=== PATIENT | female | born 1995 | race Caucasian/White ===

== ENCOUNTER → 2016-10-04 | Outpatient (CLI) | payer OTHER ==
[~2016-10-04] MED LIST: BCPILLS PO
--- NOTE | 2016-10-04 15:54 | DIAGNOSTIC IMAGING REPORT ---
LEFT KNEE MRI HISTORY: Left knee pain COMPARISON STUDY: None. TECHNIQUE: Multiplanar multisequence MRI of the left knee was performed according to standard department protocol without the use of contrast. FINDINGS: Menisci: The medial meniscus is intact. Small free edge tear at the body of the lateral meniscus. There is a hypointense focus at the intercondylar notch best seen on the coronal sequences image 16 in the axial sequences image 13. This measures 7 mm. This is indeterminate but raises the possibility of a bucket handle tear of the lateral meniscus. Ligaments: There is a full-thickness tear through the ACL. Small partial tear at the MCL. The PCL and LCL are intact. Extensor mechanism: The quadriceps tendon and patellar ligament are intact. Articular cartilage and bone: There are bone contusions at the posterior aspect of the medial and lateral tibial plateaus. Small focus of marrow edema at the lateral femoral condyle may also be due to a bone contusion. Best seen on the sagittal sequences image 6 there is suggestion of a microfracture at the posterior lip of the medial tibial plateau. No significant displacement/depression. Joint effusion: Small. Soft tissues: Soft tissue edema surrounding the knee. IMPRESSION: 1. Full-thickness ACL tear. 2. Small partial tear of the MCL. 3. Small free edge tear at the body of the lateral meniscus. There is also a 7 mm hypointense focus within the intercondylar notch. This is indeterminate but raises the possibility of a bucket handle tear of the lateral meniscus. 4. Small joint effusion. 5. Suggestion of a small microfracture at the posterior lip of the medial tibial plateau. No significant displacement/depression. Electronically signed by: Nolberto Michele M.D. 10/04/2016 3:52 PM Dictated Date/Time: 10/04/2016 12:01 PM
== END | disposition home or self-care (01) ==
LOC: C.MRI 10:58
PROVIDERS: ATTEND Orthopaedic Surgery Sports Medicine
DX: S89.92XA Unspecified injury of left lower leg, initial encounter (principal); X58.XXXA Exposure to other specified factors, initial encounter

== ENCOUNTER → 2016-10-22 | Day surgery (SDC) | payer OTHER ==
[2016-10-11 12:53] VITALS: Ht 152.4 cm; Wt 52.3 kg
[~2016-10-22] VITALS: Ht 152.4 cm; Wt 52.3 kg
[~2016-10-22] MED LIST changes: +ATROPINE SULFATE 0.1 MG/ML 5ML SYR IV PRN; +BUPIVACAINE/EPINEPHRINE 0.5% MPF 1:200,000 30 ML VIAL ONE; +CEFAZOLIN 1000MG/55 ML D5W IV SCH; +DEXAMETHASONE SOD INJ 4 MG/ML VIAL ONE; +EpHEDrine SULFATE INJ 50 MG/ML AMP IV PRN; +EpINEphrine INJ 1MG/ML AMP 1 MG/ML AMP ONE; +FENTANYL CITRATE INJ 50 MCG/1 ML 2 ML VIAL IV PRN; +FENTANYL CITRATE INJ 50 MCG/1 ML 2 ML VIAL ONE; +HYDROmorphone INJ 1 MG/ML SYR ONE; +LACTATED RINGER'S 1000ML 1,000 ML IV SCH; +LIDOCAINE HCL 1% 20 ML VIAL ONE; +LIDOCAINE HCL 2% 2 ML VIAL (20MG/ML) ONE; +MIDAZOLAM HCL 1 MG/ML 2ML VIAL ONE; +MoRPHine SULFATE 2 MG/ML CARP IV PRN; +MoRPHine SULFATE 4 MG/ML 1 ML CARP\\VIAL IV PRN; +ONDANSETRON INJ 2 MG/ML 2 ML VIAL IV PRN; +ONDANSETRON INJ 2 MG/ML 2 ML VIAL ONE; +OXYCODONE/ACETAMINOPHEN 5-325 TAB PO PRN; +PROMETHAZINE HCL INJ 12.5 MG in SODIUM CHLORIDE 0.9% 50ML 50 ML IV ONE; +PROMETHAZINE HCL INJ 25 MG/ML 1 ML VIAL ONE; +PROPOFOL IV EMULSION 10 MG/ML 20 ML VIAL IV ONE; +ROPIVACAINE 0.5% 5 MG/ML 30 ML VIAL ONE; +SCOPOLAMINE 1.5 MG TDSY TD ONE
--- NOTE | 2016-10-22 06:44 | History & Physical Bridge - [place] ---
H&P Re-Evaluation Bridge Note: I have examined the patient, reviewed the History & Physical and in the interval since the performance of the History & Physical I have noted the following changes of clinical significance: No changes noted
--- NOTE | 2016-10-22 10:06 | Discharge Instructions-SurgCtr ---
Discharge Instructions Visit Reason for Visit: Left Acl Tear, Mcl Sprain Discharge Discharge Diagnosis / Problem: S/P Left ACL reconstruction, partial Lateral meniscectomy Discharge Goals Goal(s): Decrease discomfort, Improve function, Increase independence Activity Recommendations Activity Limitations: per Instructions/Follow-up section May Resume Sexual Activity: when tolerated Shower/Bathe: may shower/bathe in 3 days Driving or Machine Use: Not while on Narcotics Weightbearing Status: Left non-weightbearing (for 24 hours, then WBAT with brace locked in extension) Anesthesia . Post Anesthesia Instructions: If you have had General Anesthesia or IV Sedation: * Do not drive today. * Resume driving when surgeon permits. * Do not make important decisions or sign legal documents today. * Call surgeon for: 1. Temperature elevations greater than 101 degrees F. 2. Uncontrollable pain. 3. Excessive bleeding. 4. Persistent nausea and vomiting. 5. Medication intolerance (nausea, vomiting or rash). * For nausea and vomiting use only clear liquids such as: tea, soda, bouillon until nausea subsides, then gradually increase diet as tolerated. * If you have any concerns or questions, call your surgeon's office. If physician is unavailable and it is an emergency, call 911 or go to the nearest emergency room. . Instructions / Follow-Up Instructions / Follow-Up Dr. Hernandez in 10-15 days. ATC in 1-2 days. Diet Recommendations Home Diet: resume previous diet Procedures Procedures Performed: Left Knee Arthroscopic Anterior Cruciate Ligament Reconstruction With Hamstring Autograft, Partial Lateral Menisectomy, Exam Under Anesthesia Pending Studies Studies pending at discharge: no School Instructions Return To School: time frame (1 week) Medical Emergencies . Who to Call and When: Medical Emergencies: If at any time you feel your situation is an emergency, please call 911 immediately. . Non-Emergent Contact Non-Emergency issues call your: Surgeon Call Non-Emergent contact if: temperature is above 101.5, your pain is not controlled, wound has increased drainage, wound has increased redness . . "Provider Documentation" section prepared by Pascual Hernandez.
--- NOTE | 2016-10-22 10:07 | [facility] Post Operative Brief Note ---
Immediate Operative Summary Operative Date Oct 22, 2016. Pre-Operative Diagnosis Left Anterior cruciate ligament tear, medial collateral ligament sprain Post-Operative Diagnosis same Procedure(s) Performed 1) Left Knee Arthroscopic Anterior Cruciate Ligament Reconstruction With Hamstring Autograft. 2) Partial Lateral Menisectomy. 3) Exam Under Anesthesia. Surgeon Dr Hernandez Tannery Worker Surgeon(s) Dr Ирина Baer & Boogie Mclain PA-C Estimated Blood Loss 30 ml Findings As above. Fluids (cc crystalloids) 2000 Specimens 0 Drains n/a Anesthesia LMA + Adductor nerve block Complication(s) None Disposition Recovery Room / PACU (Stable)
--- NOTE | 2016-10-22 10:08 | [facility] Operative Report ---
Operative Report Operative Date Oct 22, 2016. Pre-Operative Diagnosis Left Anterior cruciate ligament tear, medial collateral ligament sprain Post-Operative Diagnosis same + Lateral meniscus tear Procedure(s) Performed 1) Left Knee Arthroscopic Anterior Cruciate Ligament Reconstruction With Hamstring Autograft. 2) Partial Lateral Menisectomy. 3) Exam Under Anesthesia. Surgeon Dr Hernandez Check Writing Machine Operator Surgeon(s) Dr Ирина Baer & Boogie Mclain PA-C Estimated Blood Loss 30 ml Findings Examination Under Anesthesia left knee: Range of motion was 0-140. Ligamentous examination exhibited: Ingrid testing with 7 mm of anterior translation and soft endpoint, and a + pivot glide. Stable: posterior drawer, varus and valgus stress testing at zero and 30. ARTHROSCOPIC FINDINGS: 1) PATELLOFEMORAL JOINT: The articular cartilage of the patella and trochlea was normal. 2) GUTTERS: No loose bodies. 3) MEDIAL COMPARTMENT: The articular cartilage of the femur and tibia were normal. The medial meniscus was intact. 4) ACL/PCL: There was an empty lateral wall sign. There was obvious fraying of the ACL and stump torn off the femoral side. The PCL was visualized and probed to be intact. 5) LATERAL COMPARTMENT: The lateral compartment was then entered in a figure-of- four position. The femoral/tibial cartilage was normal. The lateral meniscus had a radial tear at the apex. There was oblique flap tear at the posterior horn. Fluids (cc crystalloids) 2000 Specimens 0 Drains n/a Anesthesia LMA + Adductor nerve block Complication(s) None Disposition Recovery Room / PACU (Stable) Implants 1. Femoral Fixation with ACL Tightrope RT (Arthrex). 2. Tibial Fixation with ABS Tightrope with ABS button (Arthrex). 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 I recommended that their left knee anterior cruciate ligament reconstruction be performed to allow the patient to return to cutting/ pivoting activities. The patient understands the rehabilitation process as well as the risks of surgery, which include bleeding, infection, re-operation, damage to nerves and arteries, continued knee pain, or regression of arthritis, arthrofibrosis (knee stiffness), failure of the graft, failure of the hardware, and the potential that the patient may not return to their previous level of activity, and deep vein thrombosis. The patient understands all of these instructions and explanations, all of their questions have been satisfactorily addressed and the patient has elected to proceed. Informed consent was signed. Description of Procedure The patient was taken to the Operating Room and placed in the supine position after Adductor nerve block and general anesthetic was administered. The surgeon initials and a multidisciplinary time-out were used to identify the left leg as the correct operative limb. Prior to the incision, 1 gram of intravenous Ancef was given. The left leg was then prepped and draped in a standard sterile fashion. The anterolateral, anteromedial, and superolateral portals were injected with the 50:50 mixture of 1% Lidocaine plain and 0.5% Bupivacaine with epinephrine, for a total of 4cc, in the standard fashion. An anterolateral arthroscopic portal was established with 11-blade. Next, the arthroscope was introduced into the knee. The anteromedial portal was established under direct visualization using a spinal needle followed by an 11 blade in the standard fashion. The above findings were observed during the diagnostic arthroscopy. Graft [place]: The oblique planed incision was injected with 6 cc of the above noted 50:50 mixture. With the knee bent 40-50 degrees a #10-blade was used to make sharp dissection approximately 5 cm. Blunt dissection was used to identify the Sartorious fascia. This was incised along its superior border and T distally. The Gracilis and Semitendinosus were identified and tagged. All adhesions were bluntly and sharply dissected off the tendons. The tendons were sharply dissected off the bone distally and a Krackow stitch was placed with a # 2 FiberWire. The tendons were delivered into the wound and the remaining adhesions were removed. A closed end graft harvester was used to then harvest the tendons in the standard fashion. The graft was placed on the back table for preparation. All excess muscle was removed. The ends of the tendons were whipped stitched with 3-0 Vicryl and passed through the ABS and RT Tightropes, where the ends were then secured with a FiberLoop. 0 Vicryl was used to miguel the 20mm from either end of the tight ropes and the knot docked in the standard fashion. It was quadrupled over and found to fit an 9 mm sizer, for the femoral side and a 9 mm sizer on the tibial side. The graft length was 69 mm. The graft was tensioned on the back table and 15 PSI and covered with a moist sponge until later use. After completing the diagnostic arthroscopy, the lateral meniscus tear was irreparable and debrided back to a stable margin with a hand punches and mechanical shaver. The left knee was then flexed to 90 degrees and a bump was placed underneath the posterior thigh. With the knee flexed in a 90-degree position, my attention was then focused on excising the remnants of the anterior cruciate ligament with a 5.0 mm shaver and Coolcut. Due to the bone bleeding, and obscuring our view, an Esmarch bandage was used to exsanguinate the limb and a tourniquet was inflated to 250 mmHg. A small notchplasty was performed to visualize the back wall. The Tibial drill guide was then brought into the knee and set on 60 degrees. A 9 mm Flipcutter was then introduced from the anteromedial tibia into the intra- articular position in the center of the ACL footprint even with the anterior horn of lateral meniscus and 8 mm anterior to the PCL. The tunnel was created to a depth of 35 mm. A Tigerstick was introduced through the tibial tunnel and retrieved through the anteromedial portal. The arthroscope was switch to the anteromedial portal and the Flipcutter aiming guide was placed at the 2 Oclock position with 6 mm from the over the top position, with 110 degrees. The lateral aspect of the femur was marked and a small 2 cm incision was made to place the aiming guide down to bone. Then the 9 mm Flipcutter was introduced into the knee through the lateral femoral condyle for proper femoral tunnel placement. The Flipcutter was flipped and the tunnel was reamed for a total tunnel length of 25 mm. There was 1 mm thick back wall. A wire loop was then used and shuttled in through the femoral tunnel and then out the anteromedial portal, along with the Tigerstick to pass the graft, insuring that there was no soft tissue bridge. The graft was then introduced intra-articularly through the anteromedial portal. The graft was then seated in an anatomic position along the femur. Fixation was accomplished on the femoral side with an ACL Tightrope RT. The graft was then introduced into the tibial tunnel and an ABS button was placed. Next, the graft was taken into full extension. There was no impingement. The graft entered the knee approximately 1 mm at 10 degrees of flexion. The arthroscopic instruments were then removed. The graft was then cycled and fixed to the knee in 0 degrees flexion with ABS Tightrope and button on the tibial side in the standard fashion. Ingrid and pivot shift were then tested and were negative. The knee had full range of motion. The wounds were then copiously irrigated. The portal sites were closed with 3- 0 Prolene. The Sartorius fascia was closed with 0 Vicryl in a running fashion. The deep adipose tissue had a single 2-0 Vicryl suture placed after copious irrigation. The subcutaneous tissue was closed with 3-0 Vicryl. The skin was closed with a running subcuticular using a 3-0 Prolene in a standard running fashion. The wound was dressed with Steri-Strips, Xeroform gauze, sterile gauze , ABDs, sterile Webril, and a foot to thigh Maninder bandage. An Iceman device and T-ROM hinged knee brace were applied. The patient was then transferred to the Recovery Room in stable condition. Post-op Instructions: The patient will be weight bearing as tolerated with his brace locked in extension for the next 2 weeks. The patient may remove the operative dressing on Post-Op Day #2 and apply Band-Aids to the portal wounds and cover their anterior incision with gauze as needed. The patient may shower in 72 hours and is to wear the LAZARA for 2 weeks on their operative limb. The patient is to use the pain medicine as needed and take the ASA for 3 weeks. The patient is to start PT post-operative day 2. The patient was also given a handout for home quad strengthening and seated self-assisted ROM exercises, which they may begin tomorrow. The patient is to follow up with me in 10-15 days. I attest to the content of the Intraoperative Record and any orders documented therein. Any exceptions are noted below.
--- NOTE | 2016-10-22 10:23 | [facility] Operative Report ---
Operative Report Operative Date Oct 22, 2016. Pre-Operative Diagnosis Left Anterior cruciate ligament tear, medial collateral ligament sprain Post-Operative Diagnosis same + Lateral meniscus tear Procedure(s) Performed 1) Left Knee Arthroscopic Anterior Cruciate Ligament Reconstruction With Hamstring Autograft. 2) Partial Lateral Menisectomy. 3) Exam Under Anesthesia. Surgeon Dr Hernandez Home Care Chaplain Surgeon(s) Dr Ирина Baer & Boogie Mclain PA-C Estimated Blood Loss 30 ml Findings Same Fluids (cc crystalloids) 2000 Specimens 0 Drains none Anesthesia general, block Complication(s) None Disposition Recovery Room / PACU Implants see Dr. Hernandez's note Indications sustained injury to left knee during gymnastics, MRI obtained, surgery recommended, consents signed. Description of Procedure taken to the OR, prepped and draped, I was present the entire case, please see Dr. Hernandez's op note for further detail. I attest to the content of the Intraoperative Record and any orders documented therein. Any exceptions are noted below.
[2016-10-22 11:39] VITALS: TEMP 36.5
[2016-10-22 12:35] VITALS: BP 143/85; PULSE 67; O2SAT 100
--- NOTE | 2016-10-22 13:16 | Anesthesia Progress Nt - [facility] ---
Anesthesia Post Op Note Date & Time Oct 22, 2016 at 13:16 Vital Signs Pain Intensity: 4 Vital Signs Past 12 Hours Date Time Temp Pulse Resp B/P Pulse Ox O2 Delivery O2 Flow Rate FiO2 10/22/16 12:35 67 14 143/85 100 Room Air 10/22/16 12:15 69 16 140/89 99 Room Air 10/22/16 11:39 36.5 57 14 126/77 97 Room Air 10/22/16 11:29 71 9 10/22/16 11:29 71 9 10/22/16 11:29 74 9 96 10/22/16 11:29 74 9 96 10/22/16 11:28 127/75 10/22/16 11:28 127/75 10/22/16 11:24 67 10 99 10/22/16 11:24 68 10 10/22/16 11:24 67 10 99 10/22/16 11:24 68 10 10/22/16 11:23 133/68 10/22/16 11:23 133/68 10/22/16 11:19 64 9 99 10/22/16 11:19 64 9 10/22/16 11:19 64 9 99 10/22/16 11:19 64 9 10/22/16 11:18 125/70 10/22/16 11:18 125/70 10/22/16 11:14 94 17 10/22/16 11:14 94 17 10/22/16 11:14 93 17 95 10/22/16 11:14 93 17 95 10/22/16 11:13 130/78 10/22/16 11:13 130/78 10/22/16 11:09 93 12 10/22/16 11:09 93 12 10/22/16 11:09 92 12 100 10/22/16 11:09 92 12 100 10/22/16 11:08 126/73 10/22/16 11:08 126/73 10/22/16 11:05 36.5 70 16 135/73 99 Mask 8 10/22/16 11:04 76 16 10/22/16 11:04 76 16 10/22/16 11:04 71 16 99 10/22/16 11:04 71 16 99 10/22/16 11:03 135/73 10/22/16 11:03 135/73 10/22/16 10:59 83 11 99 217 10:59 82 11 2/ 10:59 83 11 99 10/22/17 10:59 82 11 10/22/17 10:58 124/72 26/17 10:58 124/72 2//17 10:54 67 7 2/17 10:54 67 7 99 10/22/17 10:54 67 7 99 10/22/16 10:54 67 7 10/22/ 10:53 127/72 2/17 10:53 127/72 10/22/17 10:49 84 7 10/22/ 10:49 85 7 98 10/22/ 10:49 85 7 98 10/22/ 10:49 84 7 10/22/16 10:48 136/68 10/22/ 10:48 136/68 10/22/17 10:44 104 13 99 10/22/17 10:44 103 13 10/22/16 10:44 103 13 10/22/16 10:44 104 13 99 10/22/ 10:43 133/75 2/ 10:43 133/75 10/22/17 10:39 91 9 10/22/ 10:39 88 9 99 10/22/ 10:39 88 9 99 10/22/ 10:39 91 9 10/22/16 10:38 125/71 2/17 10:38 125/71 //17 10:34 100 13 2/17 10:34 100 13 100 10/22/17 10:34 100 13 100 10/22/17 10:34 100 13 10/22/17 10:33 132/67 2/17 10:32 36.8 90 16 136/71 100 Mask 10 10/22/16 10:31 94 13 10/22/17 10:31 93 13 100 10/22/17 10:28 137/80 10/22/17 10:26 101 15 2/17 10:26 100 15 134/71 100 2/6/17 07:01 66 10/22/16 07:01 65 29 100 10/22/17 07:00 14 10/22/16 07:00 66 10/22/16 07:00 68 16 100 217 06:58 122/73 2/6/17 06:55 89 147/88 97 Mask 4 10/22/16 06:55 80 10/22/16 06:55 79 18 100 10/22/16 06:53 147/88 10/22/16 06:50 79 0 10/22/16 06:45 81 20 10/22/16 06:45 20 10/22/16 06:40 74 22 10/22/16 06:40 22 10/22/16 06:35 77 16 99 10/22/16 06:35 79 16 10/22/16 06:33 36.9 81 16 130/71 100 Room Air Notes Mental Status: alert / awake / arousable, participated in evaluation Pt Amnestic to Procedure: Yes Nausea / Vomiting: adequately controlled Pain: adequately controlled Airway Patency, RR, SpO2: stable & adequate BP & HR: stable & adequate Hydration State: stable & adequate Anesthetic Complications: no major complications apparent
== END | disposition home or self-care (01) ==
LOC: X.SURG 06:21
PROVIDERS: ATTEND Orthopaedic Surgery Sports Medicine
DX: S83.512A Sprain of anterior cruciate ligament of left knee, initial encounter (principal); S83.282A Other tear of lateral meniscus, current injury, left knee, initial encounter; W18.39XA Other fall on same level, initial encounter; Y93.43 Activity, gymnastics; Y92.39 Other specified sports and athletic area as the place of occurrence of the external cause; Y99.8 Other external cause status

== ENCOUNTER → 2017-07-24 | Outpatient (CLI) | payer OTHER ==
--- NOTE | 2017-07-23 17:09 | DIAGNOSTIC IMAGING REPORT ---
RIGHT HAND 3 VIEWS HISTORY: RIGHT HAND PAIN COMPARISON: None. FINDINGS: Oblique fractures within the shafts of the third and fourth metacarpals which demonstrate up to 5 mm of posterior displacement. No dislocation. Soft tissue swelling within the hand. No radiopaque foreign bodies. IMPRESSION: Oblique displaced fractures within the shafts of the third and fourth metacarpals. Electronically signed by: Nolberto Michele M.D. 07/23/2017 5:08 PM Dictated Date/Time: 07/23/2017 5:06 PM
[~2017-07-24] MED LIST changes: -ATROPINE SULFATE 0.1 MG/ML 5ML SYR IV PRN; -BUPIVACAINE/EPINEPHRINE 0.5% MPF 1:200,000 30 ML VIAL ONE; -CEFAZOLIN 1000MG/55 ML D5W IV SCH; -DEXAMETHASONE SOD INJ 4 MG/ML VIAL ONE; -EpHEDrine SULFATE INJ 50 MG/ML AMP IV PRN; -EpINEphrine INJ 1MG/ML AMP 1 MG/ML AMP ONE; -FENTANYL CITRATE INJ 50 MCG/1 ML 2 ML VIAL IV PRN; -FENTANYL CITRATE INJ 50 MCG/1 ML 2 ML VIAL ONE; -HYDROmorphone INJ 1 MG/ML SYR ONE; -LACTATED RINGER'S 1000ML 1,000 ML IV SCH; -LIDOCAINE HCL 1% 20 ML VIAL ONE; -LIDOCAINE HCL 2% 2 ML VIAL (20MG/ML) ONE; -MIDAZOLAM HCL 1 MG/ML 2ML VIAL ONE; -MoRPHine SULFATE 2 MG/ML CARP IV PRN; -MoRPHine SULFATE 4 MG/ML 1 ML CARP\\VIAL IV PRN; -ONDANSETRON INJ 2 MG/ML 2 ML VIAL IV PRN; -ONDANSETRON INJ 2 MG/ML 2 ML VIAL ONE; +OXYC-57 PO; -OXYCODONE/ACETAMINOPHEN 5-325 TAB PO PRN; -PROMETHAZINE HCL INJ 12.5 MG in SODIUM CHLORIDE 0.9% 50ML 50 ML IV ONE; -PROMETHAZINE HCL INJ 25 MG/ML 1 ML VIAL ONE; -PROPOFOL IV EMULSION 10 MG/ML 20 ML VIAL IV ONE; -ROPIVACAINE 0.5% 5 MG/ML 30 ML VIAL ONE; -SCOPOLAMINE 1.5 MG TDSY TD ONE
== END | disposition home or self-care (01) ==
LOC: C.RDSM 11:50
PROVIDERS: ATTEND Physician Assistant
DX: S62.322A Displaced fracture of shaft of third metacarpal bone, right hand, initial encounter for closed fracture (principal); S62.324A Displaced fracture of shaft of fourth metacarpal bone, right hand, initial encounter for closed fracture; X58.XXXA Exposure to other specified factors, initial encounter

== ENCOUNTER → 2017-07-29 | Day surgery (SDC) | payer OTHER ==
[2017-07-25 10:03] VITALS: Ht 152.4 cm; Wt 54.5 kg
[~2017-07-29] VITALS: Ht 152.4 cm; Wt 54.5 kg
[~2017-07-29] MED LIST changes: +ATROPINE SULFATE 0.1 MG/ML 5ML SYR IV PRN; +BUPIVACAINE/EPINEPHRINE 0.5% MPF 1:200,000 30 ML VIAL ONE; +CEFAZOLIN 1000MG IV PUSH 5 ML IV SCH; +CHECK SCOPOLAMINE PATCH PLACEMENT SCH; +DEXAMETHASONE SOD INJ 4 MG/ML VIAL ONE; +EpHEDrine SULFATE INJ 50 MG/ML AMP IV PRN; +FENTANYL CITRATE INJ 50 MCG/1 ML 2 ML VIAL IV PRN; +FENTANYL CITRATE INJ 50 MCG/1 ML 2 ML VIAL ONE; +HYDROmorphone INJ 1 MG/ML SYR IV PRN; +LACTATED RINGER'S 1000ML 1,000 ML IV SCH; +LIDOCAINE HCL 1% 20 ML VIAL ONE; +LIDOCAINE HCL 2% 2 ML VIAL (20MG/ML) ONE; +METOCLOPRAMIDE HCL INJ 5 MG/ML 2 ML VIAL IV PRN; +MIDAZOLAM HCL 1 MG/ML 2ML VIAL ONE; +MoRPHine SULFATE 4 MG/ML 1 ML CARP\\VIAL IV PRN; +ONDANSETRON INJ 2 MG/ML 2 ML VIAL IV PRN; +ONDANSETRON INJ 2 MG/ML 2 ML VIAL ONE; +OXYCODONE/ACETAMINOPHEN 5-325 TAB PO PRN; +PROMETHAZINE HCL INJ 12.5 MG in SODIUM CHLORIDE 0.9% 50ML 50 ML IV PRN; +PROPOFOL IV EMULSION 10 MG/ML 20 ML VIAL IV ONE; +SCOPOLAMINE 1.5 MG TDSY TD ONE; +SCOPOLAMINE 1.5 MG TDSY TD SCH; +SODIUM CHLORIDE 0.9% 1000ML 1,000 ML IV SCH
--- NOTE | 2017-07-29 13:01 | Discharge Instructions-SurgCtr ---
Discharge Instructions Date of Service Jul 29, 2017. Visit Reason for Visit: Right 3RD & 4TH Metacarpal Fractures Discharge Discharge Diagnosis / Problem: S/P ORIF right hand Discharge Goals Goal(s): Decrease discomfort, Improve function, Increase independence Activity Recommendations Activity Limitations: as noted below Lifting Limitations: until after follow-up appointment Exercise/Sports Limitations: until after follow-up appointment Shower/Bathe: keep incision dry Driving or Machine Use: when cleared by Dr. Hernandez no lifting or use with right hand sling for comfort Anesthesia . Post Anesthesia Instructions: If you have had General Anesthesia or IV Sedation: * Do not drive today. * Resume driving when surgeon permits. * Do not make important decisions or sign legal documents today. * Call surgeon for: 1. Temperature elevations greater than 101 degrees F. 2. Uncontrollable pain. 3. Excessive bleeding. 4. Persistent nausea and vomiting. 5. Medication intolerance (nausea, vomiting or rash). * For nausea and vomiting use only clear liquids such as: tea, soda, bouillon until nausea subsides, then gradually increase diet as tolerated. * If you have any concerns or questions, call your surgeon's office. If physician is unavailable and it is an emergency, call 911 or go to the nearest emergency room. . Instructions / Follow-Up Instructions / Follow-Up DIET: * Resume previous diet. MEDICATIONS: * Please take your prescriptions as instructed at your pre-op appointment and/ or see medication discharge instructions listed above. * If concerns develop, call your physician's office at . SPECIAL CARE INSTRUCTIONS: * Ice/Elevate as instructed. * Keep dressing clean, dry, intact. * Your surgical extremity may be discolored due to prepping agents used on the skin. A bluish-green tint is a normal variant and should not cause alarm. Call your doctor at [phone] if: * Temperature above 101 degrees * Pain not relieved by pain medicine ordered * There is increased drainage or redness from any incision * You have any unanswered questions, problems or concerns. FOLLOW UP VISIT: * If not already scheduled, please call the office at to schedule a follow-up appointment. Diet Recommendations Home Diet: resume previous diet Procedures Procedures Performed: Right Third and Fourth Metacarpal Fractures Open Reduction Internal Fixation Pending Studies Studies pending at discharge: no Medical Emergencies . Who to Call and When: Medical Emergencies: If at any time you feel your situation is an emergency, please call 911 immediately. . Non-Emergent Contact Non-Emergency issues call your: Primary Care Provider . . "Provider Documentation" section prepared by Boogie Mclain. . [place] Drug Monitoring Program Search Results: no issues identified
--- NOTE | 2017-07-29 13:05 | [facility] Operative Report ---
Operative Report Operative Date Jul 29, 2017. Pre-Operative Diagnosis Right Hand Third and Fourth Metacarpal Fractures Post-Operative Diagnosis Same Procedure(s) Performed Right Third and Fourth Metacarpal Fractures Open Reduction Internal Fixation Surgeon Dr. Hernandez Campaign Consultant Surgeon(s) Boogie Thomas PA-C Estimated Blood Loss see Dr. Hernandez's note Findings same Specimens None Complication(s) None Disposition Recovery Room / PACU Implants see Dr. Hernandez's note Indications sustained injury to right hand, xrays obtained, surgery recommended, consents obtained per Dr. Hernandez Description of Procedure taken to the OR, prepped and draped, I was present for prepping, draping, retraction and hemostasis I attest to the content of the Intraoperative Record and any orders documented therein. Any exceptions are noted below.
--- NOTE | 2017-07-29 13:58 | [facility] Post Operative Brief Note ---
Immediate Operative Summary Operative Date Jul 29, 2017. Pre-Operative Diagnosis Right Hand Third and Fourth Metacarpal Fractures Post-Operative Diagnosis Same Procedure(s) Performed Right Third and Fourth Metacarpal Fractures Open Reduction Internal Fixation Surgeon Dr. Hernandez Grinder Operator External Tool Surgeon(s) Boogie Thomas PA-C Estimated Blood Loss see Dr. Hernandez's note Findings Displaced, shortened, and comminuted 4th Metacarpal Fracture. Displaced and shortened 3rd Metacarpal Fracture. Fluids (cc crystalloids) 1600 Specimens None Drains n/a Anesthesia LMA Complication(s) None Disposition Recovery Room / PACU (Stable)
--- NOTE | 2017-07-29 14:03 | [facility] Operative Report ---
Operative Report Operative Date Jul 29, 2017. Pre-Operative Diagnosis Right Hand Third and Fourth Metacarpal Fractures Post-Operative Diagnosis Same Procedure(s) Performed Right Third and Fourth Metacarpal Fractures Open Reduction Internal Fixation Surgeon Dr. Hernandez Carpenter Prototype Surgeon(s) Boogie Thomas PA-C Estimated Blood Loss see Dr. Hernandez's note Findings Displaced, shortened, and comminuted 4th Metacarpal Fracture. Displaced and shortened 3rd Metacarpal Fracture. Fluids (cc crystalloids) 1600 Specimens None Drains n/a Anesthesia LMA Complication(s) None Disposition Recovery Room / PACU (Stable) Implants 4th Metacarpal: 1) 1.5 mm Locking Straight Plate, Locking Mod Hand Set (Synthes) 2) 1.5 mm Cortical Screw (9 mm & 10 x 2). 3) 1.5 mm Locking Screws (9 mm & 10 x 2). 3rd Metacarpal: 1) 1.5 mm Straight (ALPS). 2) 1.5 mm Cortical Screws (11 & 13 mm). 3) 1.5 mm Locking Screws (10 x 3, 11 mm, & 12 x 2). Indications The patient is a 22 year old female with a displaced right 3rd & 4th metacarpal fractures, that I recommended surgical fixation. The patient understands the risks of surgery, which include but are not limited to: bleeding, infection, re- operation, damage to nerves and arteries, continued pain, progression of arthritis, mal-union, non-union, and stiffness. The patient understands all of these instructions and explanations, all of their questions have been satisfactorily addressed. The patient has elected to proceed with surgery and the informed consent was signed. Description of Procedure The patient was taken to the Operating Room and placed in the supine position on the operating table. After general anesthetic was administered a multidisciplinary time-out was performed identifying my initials on the right upper extremity as the correct and operative limb. Prior to the incision being made, 1 gram of intravenous Ancef were given. The right upper extremity was prepped and draped in the usual orthopaedic sterile fashion. The planned incision between the third and fourth metacarpal was marked and was then injected with 4 cc of a 50:50 mix of 1% Lidocaine plain and 0.5% Bupivacaine with epinephrine. An radial and ulnar superficial nerve block was also performed in the standard fashion using another 4 cc of above-noted mixture. The planned incision was carried down to the extensor mechanism. The fourth metacarpal was addressed first. The distal fragment was exposed first followed by the proximal Fragment. The extensor tendon was protected throughout. The fragments were debrided of hematoma with dental pick, irrigation and suction. Care was taken not to devitalize the fragments. There was significant comminution, with a small dorsal fragment approximately 2 mm long and less than 1 mm wide that was free-floating, it was used to help establish length, but was removed. The distal fragment was comminuted and initially was partially impaled into the proximal fragment. After bringing it out to length, it was noted that there was a nondisplaced dorsal fragment of the distal fragment. Care was taken to ensure that the fragment did not become displaced. Manually reducing the fracture, eventually a 1.5 mm straight plate was found to fit best and it was cut to length and multiple K wires were used to hold the plate and fracture reduced. Fluoroscopy was brought in to ensure near anatomic reduction. Nonlocking screws were placed and both the proximal and distal fragments followed by locking screws. Fluoroscopy was used to show a near anatomic reduction with good position of the fracture and the hardware. Third metacarpal was addressed. Using the same incision, the distal fragment was exposed first followed by the proximal Fragment. The extensor tendon was protected throughout. The fragments were debrided of hematoma with dental pick , rongeur, irrigation and suction. Care was taken not to devitalize the fragments. The two fragments were reduced and held with a K wires. Fluoroscopy was brought in to ensure near anatomic reduction. A 1.5 mm straight plate ([facility]) was selected and fit well after it was contoured and cut to size. Once the plate was placed and the fracture reduced and held in place with 3 K wires. This was confirmed by Fluoro. A Non-locking screw was placed in the proximal and distal fragments reducing the plate to the bone. Then locking screws were placed in the remaining holes that did not overlie the fracture dorsally. There was 5 cortices of purchase on the distal fragment and 6 cortices of purchase on the proximal fragment. Fluoroscopy was used to show a near anatomic reduction with good position of the fracture and the hardware. The wound was copiously irrigated. The periosteum was closed over the plate with 2-0 & 3-0 Vicryl. The subcutaneous layer was closed with 3-0 Vicryl. The skin was closed with 4-0 Monocryl using a running subcuticular. After the hand was cleaned and dried and Dermabond was placed over top of the incision. Once the Dermabond had dried , Steri-Strips were placed over top. The wound was dressed with sterile gauze, sterile Webril, and a volar resting splint was placed. The sponge and needle counts were correct. The patient was taken to the recovery room in stable condition. Post-op Instructions: Pain medicine prescription was given pre-operatively to be taken as needed. The patient will follow up with me in 10-15 days. I attest to the content of the Intraoperative Record and any orders documented therein. Any exceptions are noted below.
[2017-07-29 15:43] VITALS: BP 132/84; PULSE 69; O2SAT 98
--- NOTE | 2017-07-29 15:44 | Anesthesia Progress Nt - [facility] ---
Anesthesia Post Op Note Date & Time Jul 29, 2017 at 15:44 Vital Signs Pain Intensity: 6 Vital Signs Past 12 Hours Date Time Temp Pulse Resp B/P (MAP) Pulse Ox O2 Delivery O2 Flow Rate FiO2 07/29/17 15:11 37 82 16 137/80 (99) 96 Nasal Cannula 07/29/17 15:08 72 14 98 07/29/17 15:08 74 14 07/29/17 15:06 147/86 (101) 07/29/17 15:05 Room Air 07/29/17 15:03 81 13 100 07/29/17 15:03 77 13 07/29/17 15:01 152/85 (95) 07/29/17 14:58 63 13 07/29/17 14:58 62 13 100 07/29/17 14:56 145/98 (105) 07/29/17 14:53 70 19 07/29/17 14:53 70 19 100 07/29/17 14:51 146/92 (108) 07/29/17 14:48 83 16 100 07/29/17 14:48 84 16 07/29/17 14:46 151/104 (118) 07/29/17 14:43 78 18 100 07/29/17 14:43 78 18 07/29/17 14:41 152/94 (102) 07/29/17 14:38 80 14 07/29/17 14:38 82 14 100 07/29/17 14:36 144/93 (110) 07/29/17 14:33 80 20 07/29/17 14:33 80 20 100 07/29/17 14:31 138/96 (100) 07/29/17 14:30 86 16 138/96 100 07/29/17 14:28 107 15 100 07/29/17 14:28 104 15 07/29/17 14:26 147/99 (120) 07/29/17 14:24 162/101 (117) 07/29/17 14:23 124 99 07/29/17 14:23 124 07/29/17 14:21 37.1 120 16 162/100 100 Diffusion Mask 5 07/29/17 09:22 36.7 86 16 124/75 (91) 100 Room Air Notes Mental Status: alert / awake / arousable, participated in evaluation Pt Amnestic to Procedure: Yes Nausea / Vomiting: adequately controlled Pain: adequately controlled Airway Patency, RR, SpO2: stable & adequate BP & HR: stable & adequate Hydration State: stable & adequate Anesthetic Complications: no major complications apparent
== END | disposition home or self-care (01) ==
LOC: X.SURG 09:13
PROVIDERS: ATTEND Orthopaedic Surgery Sports Medicine
DX: S62.302A Unspecified fracture of third metacarpal bone, right hand, initial encounter for closed fracture (principal); S62.304A Unspecified fracture of fourth metacarpal bone, right hand, initial encounter for closed fracture; X58.XXXA Exposure to other specified factors, initial encounter

== ENCOUNTER → 2017-09-12 | Outpatient (CLI) | payer OTHER ==
[~2017-09-12] MED LIST changes: -ATROPINE SULFATE 0.1 MG/ML 5ML SYR IV PRN; -BUPIVACAINE/EPINEPHRINE 0.5% MPF 1:200,000 30 ML VIAL ONE; -CEFAZOLIN 1000MG IV PUSH 5 ML IV SCH; -CHECK SCOPOLAMINE PATCH PLACEMENT SCH; -DEXAMETHASONE SOD INJ 4 MG/ML VIAL ONE; -EpHEDrine SULFATE INJ 50 MG/ML AMP IV PRN; -FENTANYL CITRATE INJ 50 MCG/1 ML 2 ML VIAL IV PRN; -FENTANYL CITRATE INJ 50 MCG/1 ML 2 ML VIAL ONE; -HYDROmorphone INJ 1 MG/ML SYR IV PRN; -LACTATED RINGER'S 1000ML 1,000 ML IV SCH; -LIDOCAINE HCL 1% 20 ML VIAL ONE; -LIDOCAINE HCL 2% 2 ML VIAL (20MG/ML) ONE; -METOCLOPRAMIDE HCL INJ 5 MG/ML 2 ML VIAL IV PRN; -MIDAZOLAM HCL 1 MG/ML 2ML VIAL ONE; -MoRPHine SULFATE 4 MG/ML 1 ML CARP\\VIAL IV PRN; -ONDANSETRON INJ 2 MG/ML 2 ML VIAL IV PRN; -ONDANSETRON INJ 2 MG/ML 2 ML VIAL ONE; -OXYCODONE/ACETAMINOPHEN 5-325 TAB PO PRN; -PROMETHAZINE HCL INJ 12.5 MG in SODIUM CHLORIDE 0.9% 50ML 50 ML IV PRN; -PROPOFOL IV EMULSION 10 MG/ML 20 ML VIAL IV ONE; -SCOPOLAMINE 1.5 MG TDSY TD ONE; -SCOPOLAMINE 1.5 MG TDSY TD SCH; -SODIUM CHLORIDE 0.9% 1000ML 1,000 ML IV SCH
== END | disposition home or self-care (01) ==
LOC: C.RDSM 15:20
PROVIDERS: ATTEND Orthopaedic Surgery Sports Medicine
DX: S62.91XA Unspecified fracture of right hand, initial encounter for closed fracture (principal); X58.XXXA Exposure to other specified factors, initial encounter

== ENCOUNTER → 2017-09-20 | Outpatient (CLI) | payer OTHER ==
--- NOTE | 2017-09-20 19:55 | DIAGNOSTIC IMAGING REPORT ---
MRI OF THE LEFT KNEE WITHOUT CONTRAST CLINICAL HISTORY: Left knee pain following injury. History of ACL reconstruction. COMPARISON STUDY: MRI of the left knee October 04, 2016. TECHNIQUE: Utilizing a 1.5 Emily magnet and dedicated coil, multiplanar, multiecho imaging of the left knee was performed without intravenous or intraarticular contrast. FINDINGS: The patient is status post ACL reconstruction. There is abnormal signal within the mid aspect of the graft consistent with a graft tear. The posterior cruciate ligament is slightly redundant but likely intact. The lateral collateral ligament complex is intact. There is fluid signal along the medial and lateral aspects of the medial collateral ligament suggestive of a grade I MCL sprain. A small free edge tear along the body of the lateral meniscus is unchanged since MRI of October 04, 2016. There has been interval development of an oblique tear within the posterior horn of the medial meniscus since previous MRI. This exam is mildly compromised by motion artifact. There is a small to moderate right knee joint effusion. Extensor mechanism is intact. There is mild edema along the medial joint capsule. There is moderate focal edema within the posterior aspect of the medial tibial plateau. Edema was shown at this site on MRI of March 04, 2017. IMPRESSION: 1. Findings consistent with tear of the mid aspect of the ACL graft. 2. Grade I MCL sprain. 3. Interval development of an oblique tear of the posterior horn of the medial meniscus since MRI of October 04, 2016. No change in a free edge tear of the lateral meniscus since prior MRI. 4. Small to moderate left knee joint effusion. 5. Moderate focal edema of the posterior aspect of the medial tibial plateau. Electronically signed by: Luke Paredes M.D. 09/20/2017 7:54 PM Dictated Date/Time: 09/20/2017 7:19 PM
== END | disposition home or self-care (01) ==
LOC: C.MRI 18:03
PROVIDERS: ATTEND Orthopaedic Surgery Sports Medicine
DX: Z09 Encounter for follow-up examination after completed treatment for conditions other than malignant neoplasm (principal); S83.512A Sprain of anterior cruciate ligament of left knee, initial encounter; X58.XXXA Exposure to other specified factors, initial encounter; S83.412A Sprain of medial collateral ligament of left knee, initial encounter; S83.242A Other tear of medial meniscus, current injury, left knee, initial encounter; M25.462 Effusion, left knee